=== PATIENT | female | born 1950 | race Caucasian/White ===

== ENCOUNTER 2017-06-12 19:44 | Emergency (ER) | payer MEDICARE ==
[~2017-06-12] VITALS: Ht 165.1 cm; Wt 60.6 kg
[2017-06-12 20:06] VITALS: BP 161/96; PULSE 79; RESP 20; TEMP 98.5; O2SAT 97
[2017-06-12] MEDS ORDERED: VENL37.5 PO (20:13)
[2017-06-12] MEDS ORDERED: TETANUS/DIPHTHERIA TOXOID ADULT 0.5 ML VIAL IM ONE (20:30)
[2017-06-12] MEDS ORDERED: AMOXICILLIN/CLAVULANATE K 875 MG TAB PO ONE (20:30)
[2017-06-12] MEDS ORDERED: AUGM875T3 PO (20:36)
--- NOTE | 2017-06-12 20:37 | PD ---
HPI Chief Complaint: Bite or Sting Time Seen by Provider: 20:22 Travel History International Travel<30 days: No Contact w/Intl Traveler<30days: No Traveled to known affect area: No History of Present Illness HPI This is a 67-year-old female here with animal bite to the left forearm. She reports her daughter's cat bite her in the dorsal aspect of the arm causing 2 puncture wounds. The area became increasingly red and painful today. She denies fever chills. Symptom severity is moderate. Aggravated by palpation of the area. No alleviating factors. PFSH Past Medical History Cancer: Yes (BREAST) High Cholesterol: Yes Diminished Hearing: No Tetanus Vaccination: Unknown Influenza Vaccination: Yes ?: Not Past Surgical History Mastectomy: Yes (LEFT) Other Surgery: Yes (LEFT ANKLE, SUBDURAL HEMATOMA) Social History Alcohol Use: No Tobacco Use: No Substance Use: No Allergies-Medications (Allergen,Severity, Reaction): Coded Allergies: No Known Allergies (Unverified , 06/12/17) Reported Meds & Prescriptions Reported Meds & Active Scripts Active Reported Effexor (Venlafaxine HCl) 37.5 Mg Tab 37.5 Mg PO DAILY Review of Systems Except as stated in HPI: all other systems reviewed are Neg General / Constitutional: No: Fever Eyes: No: Visual changes HENT: No: Headaches Cardiovascular: No: Chest Pain or Discomfort Respiratory: No: Shortness of Breath Gastrointestinal: No: Abdominal Pain Physical Exam Narrative GENERAL: Alert and well-appearing 67-year-old female SKIN: Warm and dry. 8x9 area of erythema to the dorsal aspect of the left forearm with 2 puncture wounds in the center. No drainage from the site. HEAD: Normocephalic. EYES: No injection or drainage. NECK: Supple, trachea midline. CARDIOVASCULAR: Regular rate and rhythm RESPIRATORY: Breath sounds equal bilaterally. No accessory muscle use. GASTROINTESTINAL: Abdomen soft, non-tender, nondistended. MUSCULOSKELETAL: No cyanosis, or edema. Left upper extremity: 8x9 area of erythema to the dorsal aspect of the left forearm with 2 puncture wounds/ abrasions in the center. No drainage from the puncture wounds. No crepitus or soft tissue abnormality palpated over the puncture wounds. No induration or fluctuance. No lymphangitis. No joint involvement. 2+ radial pulse. Normal sensation. Brisk cap refill. Data Data Last Documented VS Vital Signs Date Time Temp Pulse Resp B/P (MAP) Pulse Ox O2 Delivery O2 Flow Rate FiO2 06/12/17 20:06 98.5 79 20 161/96 (117) 97 Orders Orders Tetanus/Diphtheria Tox Adult (Tetanus/Di (06/12/17 20:30) Amoxicil-Clavulanate (Augmentin) (06/12/17 20:30) MDM Medical Decision Making Medical Screen Exam Complete: Yes Emergency Medical Condition: Yes Differential Diagnosis Animal bite, cellulitis, abscess Narrative Course 67-year-old female with a Bite to left forearm and localized infection. She is nontoxic appearing. She will be started on Augmentin. 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 The wound was marked and she was instructed to return if the redness expanded beyond that area. She is to follow-up with her primary doctor. Diagnosis Primary Impression: Animal bite Referrals: Primary Care Physician Additional Instructions: Antibiotics as directed. Follow-up with her primary doctor. Return to emergency department if he develop new or worsening symptoms. Scripts Amoxicillin-Clavulanate (Augmentin) 875-125 Mg Tab 1 TAB PO BID for Infection, #20 TAB 0 Refills Prov: Bianca Nuñez 06/12/17 Disposition: 01 DISCHARGE HOME Condition: Stable Bianca Nuñez Jun 12, 2017 20:37
== END 2017-06-12 20:51 | disposition home or self-care (01) ==
LOC: PHEFT 19:44
DX: S51.852A Open bite of left forearm, initial encounter (principal); W55.01XA Bitten by cat, initial encounter; E78.00 Pure hypercholesterolemia, unspecified; Z85.3 Personal history of malignant neoplasm of breast; Z90.12 Acquired absence of left breast and nipple; Z23 Encounter for immunization
CPT/HCPCS: 90471; 90714